=== PATIENT | female | born 1940 | race Caucasian/White ===

== ENCOUNTER 2025-08-06 10:47 | Outpatient (CLI) | payer MEDICARE, OTHER | END 2025-08-06 10:48 | disposition home or self-care (01) | LOC: SCSMRI 10:47 | PROVIDERS: ATTEND Orthopaedic Surgery | DX: M47.26 Other spondylosis with radiculopathy, lumbar region (principal); M51.16 Intervertebral disc disorders with radiculopathy, lumbar region | CPT/HCPCS: 72148 ==